=== PATIENT | male | born 1940 | race Caucasian/White ===

== ENCOUNTER 2018-07-10 12:32 | Outpatient (CLI) | payer BC ==
--- NOTE | 2018-07-10 15:09 | ULT ---
CAROTID ARTERIAL DOPPLER ULTRASOUND: DATE: . COMPARISON: None. HISTORY: Carotid bruit, assess for carotid artery disease. TECHNIQUE: Multiplanar, richard scale sonographic imaging of the arterial structures of the neck obtained with colo r flow and spectral analysis. FINDINGS: Mild calcified plaque noted within distal right CCA. There is mild calcified plaque within proximal right ICA as well. There is mild calcified plaque within distal left CCA and proximal left ICA. Antegrade blood flow no brendon within the carotid and vertebral system bilaterally. VESSEL PSV(CM/S) ESV(CM/S) Right CCA 79 20 Right ICA 62 23 Right ECA 92 14 Left CCA 84 17 Left ICA 87 32 Left ECA 84 11 IC/CC ratio is 0.8 on the right and 1.0 on the left. IMPRESSION: No hemodynamically significant stenosis on the basis of sonographic velocity criteria. POS: JANIE
== END 2018-07-10 12:33 | disposition home or self-care (01) ==
LOC: ULT 12:32
PROVIDERS: ATTEND Internal Medicine
DX: R09.89 Other specified symptoms and signs involving the circulatory and respiratory systems (principal); R01.1 Cardiac murmur, unspecified; I08.2 Rheumatic disorders of both aortic and tricuspid valves
CPT/HCPCS: 93306; 93880

== ENCOUNTER 2021-12-18 11:42 | Outpatient (CLI) | payer MEDICARE, BC ==
[2021-12-18 13:18] LABS: #Eosinphils 0.2 10x3/uL (0.0-0.5); #Monocytes 0.6 10x3/uL (0.0-1.1); #Neutrophils 4.5 10x3/uL (1.5-8.4); %Basophils 0.4 % (0.0-2.0); %Eosinophils 2.7 % (0.0-6.0); %Lymphocytes 30.3 % (18.0-47.0); %Monocytes 8.2 % (0.0-10.0); %Neutrophils 57.9 % (40.0-75.0); Hemoglobin 13.8 g/dL (13.5-17.5); Mean Corpuscular HGB CONC 33.1 g/dL (32.0-36.0); Mean Corpuscular Hemoglobin 28.5 pg (27.0-33.0); Mean Corpuscular Volume 86.2 fl (81.2-95.1); Mean Platelet Volume 10.1 fl (7.4-10.4); Platelet Count 236 10x3/uL (150-450); RBC Distribution Width 14.5 % (11.5-14.5); Red Blood Cell (RBC) Count 4.84 10x6/uL (4.32-5.72); White Blood Cell (WBC) Count 7.8 10x3/uL (3.5-10.5)
[2021-12-18 13:41] LABS: ALT (SGPT) 16 U/L (8-55); AST (SGOT) 19 U/L (5-34); Albumin 4.2 g/dL (3.4-4.8); Alkaline Phosphatase 61 U/L (40-110); Anion Gap 15 mmol/L (10-20); BUN (Urea Nitrogen) 19 mg/dL (8.4-25.7); Bilirubin, Total 1.4 mg/dL (0.2-1.2); Calc. Creatinine Clearance 0 mL/min (70-130); Calcium 9.2 mg/dL (7.8-10.44); Carbon Dioxide 24 mmol/L (23-31); Chloride 111 mmol/L (98-107); Globulin 2.7 g/dL (2.4-3.5); Glucose 104 mg/dL (83-110); Potassium 4.6 mmol/L (3.5-5.1); Protein, Total 6.9 g/dL (5.8-8.1); Sodium 145 mmol/L (136-145)
[2021-12-18 23:48] LABS: SARS-CoV-2 PCR by NAA Not Detected (NotDetected)
== END 2021-12-18 11:43 | disposition home or self-care (01) ==
LOC: LABBT 11:42
PROVIDERS: ATTEND Surgery
DX: Z01.818 Encounter for other preprocedural examination (principal); K40.90 Unilateral inguinal hernia, without obstruction or gangrene, not specified as recurrent; Z20.822 Contact with and (suspected) exposure to COVID-19
CPT/HCPCS: 80053; 85025; 93005; U0003; U0005; 93010